=== PATIENT | male | born 2000 | race Caucasian/White ===

== ENCOUNTER 2023-03-22 23:30 | Emergency (ER) | payer OTHER ==
[2023-03-22 23:40] VITALS: BP 114/64; PULSE 59; RESP 16; TEMP 98; BMI 24.4
== END 2023-03-23 00:50 | disposition home or self-care (01) ==
LOC: FER 23:30
DX: S32.2XXA Fracture of coccyx, initial encounter for closed fracture (principal); S09.90XA Unspecified injury of head, initial encounter; W01.198A Fall on same level from slipping, tripping and stumbling with subsequent striking against other object, initial encounter
CPT/HCPCS: 99282-25